=== PATIENT | male | born 1975 | race Caucasian/White ===

== ENCOUNTER 2019-08-16 09:05 | Day surgery (SDC) | payer OTHER, BC ==
[2019-08-16] MEDS ORDERED: Ketorolac 30 MG/ML SDV IVPUSH ONE (09:11)
[2019-08-16] MEDS ORDERED: fentaNYL 50 MCG/ML SDV IVPUSH ONE (09:11)
--- NOTE | 2019-08-16 09:31 | EDM.PDOC ---
ED [facility] GENERAL MEDICAL PROBLEM - General Chief Complaint: Lower Extremity Injury/Pain Stated Complaint: EMS Time Seen by Provider: 08/16/19 09:10 Source of Information: Reports: Patient History Limitations: Reports: No Limitations - History of Present Illness INITIAL COMMENTS - FREE TEXT/NARRATIVE: Patient is a 43-year-old male with no significant past medical history presenting with a chief complaint of right lower extremity injury. Patient states injury happened just prior to arrival. Patient states he was walking and slipped on ice twisting his right leg. Patient reports immediate pain which is severe in nature to the right lower extremity. Patient states he cannot move his leg due to pain. Patient denies any numbness tingling. Denies any other injuries to the body. Denies striking his head or having loss of consciousness. Patient received 50 of fentanyl and 2 of Versed prior to arrival without any relief. Pmhx: None Pshx: None Family Hx: noncontributory Smoking history? no Etoh use? none Drug use? none In addition to that documented in the HPI above, the additional ROS was obtained : Constitutional: Denies fevers or chills Eyes: Denies vision changes ENMT: Denies sore throat CV: Denies chest pain Resp: Denies SOB GI: Denies vomiting or diarrhea : Denies painful urination MSK: Per HPI Skin: Denies new rashes Neuro: Denies new numbness or tingling or weakness Endocrine: Denies unexpected weight loss Heme: Denies bleeding disorders I have reviewed the triage vital signs Const: Well nourished, well developed, appears stated age Eyes: PERRL, no conjunctival injection HENT: NCAT, Neck supple without meningismus CV: RRR, Warm, well-perfused extremities RESP: CTAB, Unlabored respiratory effort GI: soft, non-tender, non-distended, no masses MSK: Palpable deformity in the mid right tibia as well as in the right ankle. Patient has good sensation to light touch as well as good motor function. Dorsalis pedis pulse palpated. Capillary refill 3 seconds. Skin: Warm, dry. No rashes Neuro: Alert, manager branch II-XII grossly intact. Sensation and motor function of extremities grossly intact. Psych: Appropriate mood and affect Assessment and plan: Patient is a 43-year-old male presenting with right lower extremity trauma. Patient's right lower extremity x-ray demonstrates a tib-fib fracture. Patient has no vascular compromise. Case was discussed with Dr. Coker of orthopedics who agreed to admit the patient under his service for operative management. Patient has no other major trauma and will be admitted to same-day surgery under the orthopedic service. CT scan will be done of the right lower extremity to determine the fracture line. right ankle Pain Score (Numeric/FACES): 9 - Related Data Allergies Allergy/AdvReac Type Severity Reaction Status Date / Time No Known Allergies Allergy Verified 08/16/19 09:10 Home Meds: Home Meds Escitalopram Oxalate [Lexapro] 20 mg PO DAILY 08/16/19 [History] Past Medical History HEENT History: Reports: None Cardiovascular History: Reports: None Respiratory History: Reports: None Gastrointestinal History: Reports: None Genitourinary History: Reports: None Musculoskeletal History: Reports: None Neurological History: Reports: None Psychiatric History: Reports: Anxiety, Depression Endocrine/Metabolic History: Reports: None Hematologic History: Reports: None Immunologic History: Reports: None Oncologic (Cancer) History: Reports: None Dermatologic History: Reports: None - Infectious Disease History Infectious Disease History: Reports: Chicken Pox - Past Surgical History Head Surgeries/Procedures: Reports: None HEENT Surgical History: Reports: None Cardiovascular Surgical History: Reports: None Respiratory Surgical History: Reports: None GI Surgical History: Reports: None Male Surgical History: Reports: None Endocrine Surgical History: Reports: None Neurological Surgical History: Reports: None Musculoskeletal Surgical History: Reports: None Oncologic Surgical History: Reports: None Dermatological Surgical History: Reports: None Social & Family History - Family History Family Medical History: Noncontributory - Tobacco Use Smoking Status *Q: Current Every Day Smoker Years of Tobacco use: 22 Packs/Tins Daily: 1 - Caffeine Use Caffeine Use: Reports: Coffee - Recreational Drug Use Recreational Drug Use: No Review of Systems - Review of Systems Review Of Systems: See Below ED EXAM, GENERAL - Physical Exam Exam: See Below Course - Vital Signs Last Recorded V/S: Last Vital Signs Temp 36.2 C 08/16/19 09:08 Pulse 88 08/16/19 10:12 Resp 16 08/16/19 10:12 BP 111/75 08/16/19 10:12 Pulse Ox 95 08/16/19 10:12 - Orders/Labs/Meds Orders: Active Orders 24 hr Category Date Time Status Admission Status [Patient Status] [ADT] Stat ADT 08/16/19 09:59 Active Admission Status [Patient Status] [ADT] Stat ADT 08/16/19 10:40 Active Antiembolic Devices [RC] PER UNIT ROUTINE Care 08/16/19 10:39 Active Nothing Per Oral Diet [DIET] Diet 08/16/19 Lunch Active Lower Leg wo Cont Rt [CT] Stat Exams 08/16/19 09:58 Taken TYPE AND SCREEN [BBK] Stat Lab 08/16/19 10:42 Received Lactated Ringers [Ringers, Lactated] 1,000 ml Med 08/16/19 11:00 Active IV ASDIRECTED ceFAZolin [Ancef] 2 gm Med 08/16/19 15:00 Active Premix Bag 1 bag IV ONCALL Obtain Home Medication List [OM.PC] Routine Oth 08/16/19 10:37 Ordered Sequential Compression Device [OM.PC] Routine Oth 08/16/19 10:37 Ordered Code Status [Resuscitation Status] Routine Resus Stat 08/16/19 10:36 Ordered Medication Orders Cefazolin Sodium/Dextrose 2 gm (/ Premix) 50 mls @ 100 mls/hr IV ONCALL KENDRA Lactated Ringer's (Ringers, Lactated) 1,000 mls @ 100 mls/hr IV ASDIRECTED KENDRA Labs: Laboratory Tests 08/16/19 08/16/19 08/16/19 Range/Units 10:04 10:04 10:04 WBC 20.34 H (4.0-11.0) K/uL RBC 4.47 L (4.50-5.90) M/uL Hgb 15.0 (13.0-17.0) g/dL Hct 43.0 (38.0-50.0) % MCV 96.2 (80.0-98.0) fL MCH 33.6 H (27.0-32.0) pg MCHC 34.9 (31.0-37.0) g/dL RDW Std Deviation 49.7 (28.0-62.0) fl RDW Coeff of Michelle 14 (11.0-15.0) % Plt Count 248 (150-400) K/uL MPV 9.30 (7.40-12.00) fL Neut % (Auto) 88.1 H (48.0-80.0) % Lymph % (Auto) 6.2 L (16.0-40.0) % [place] % (Auto) 5.5 (0.0-15.0) % Eos % (Auto) 0.1 (0.0-7.0) % Baso % (Auto) 0.1 (0.0-1.5) % Neut # (Auto) 17.9 H (1.4-5.7) K/uL Lymph # (Auto) 1.3 (0.6-2.4) K/uL [place] # (Auto) 1.1 H (0.0-0.8) K/uL Eos # (Auto) 0.0 (0.0-0.7) K/uL Baso # (Auto) 0.0 (0.0-0.1) K/uL Nucleated RBC % 0.1 /100WBC Nucleated RBCs # 0 K/uL INR 1.01 Sodium 137 (136-148) mmol/L Potassium 4.1 (3.5-5.1) mmol/L Chloride 101 (98-107) mmol/L Carbon Dioxide 24.3 (21.0-32.0) mmol/L BUN 16 (7.0-18.0) mg/dL Creatinine 0.9 (0.8-1.3) mg/dL Est Cr Clr Drug Dosing 93.53 mL/min Estimated GFR (MDRD) > 60.0 ml/min Glucose 104 (74-106) mg/dL Calcium 8.9 (8.5-10.1) mg/dL Meds: Medications Generic Name Dose Route Start Last Admin Trade Name Freq PRN Reason Stop Dose Admin Cefazolin Sodium/Dextrose 2 gm 50 mls @ 100 mls/hr 08/16/19 15:00 / Premix IV ONCALL KENDRA Lactated Ringer's 1,000 mls @ 100 mls/hr 08/16/19 11:00 Ringers, Lactated IV ASDIRECTED KENDRA Discontinued Medications Generic Name Dose Route Start Last Admin Trade Name Freq PRN Reason Stop Dose Admin Fentanyl 100 mcg 08/16/19 09:11 08/16/19 09:22 Fentanyl IVPUSH 08/16/19 09:12 100 mcg ONETIME ONE Administration Ketorolac Tromethamine 30 mg 08/16/19 09:11 08/16/19 09:21 Toradol IVPUSH 08/16/19 09:12 30 mg ONETIME ONE Administration Morphine Sulfate 6 mg 08/16/19 10:52 Morphine IVPUSH 08/16/19 10:53 ONETIME ONE Ondansetron HCl 4 mg 08/16/19 10:52 Zofran IVPUSH 08/16/19 10:53 ONETIME ONE Departure - Departure Time of Disposition: 11:00 Disposition: Refer to Observation Clinical Impression: Fracture of tibia AND fibula - Discharge Information Referrals: Nuno Menon MD [Primary Care Provider] - Forms: ED Department Discharge Sepsis Event Note - Evaluation Sepsis Screening Result: No Definite Risk - Focused Exam Vital Signs: Vital Signs Temp Pulse Resp BP Pulse Ox 08/16/19 10:12 88 16 111/75 95 08/16/19 09:08 36.2 C 81 18 130/98 H 96 Date Exam was Performed: 08/16/19 Time Exam was Performed: 10:59 - My Orders Last 24 Hours: My Active Orders 08/16/19 09:58 Lower Leg wo Cont Rt [CT] Stat 08/16/19 09:59 Admission Status [Patient Status] [ADT] Stat 08/16/19 10:42 TYPE AND SCREEN [BBK] Stat - Assessment/Plan Last 24 Hours: My Active Orders 08/16/19 09:58 Lower Leg wo Cont Rt [CT] Stat 08/16/19 09:59 Admission Status [Patient Status] [ADT] Stat 08/16/19 10:42 TYPE AND SCREEN [BBK] Stat
--- NOTE | 2019-08-16 10:10 | CR ---
Right ankle: 3 views of the right ankle were obtained. Comparison: No previous ankle study. Comminuted distal tibial diaphyseal fracture is seen. Fracture is also noted within the distal fibular shaft. Tibial fracture shows displacement in an anterior to posterior direction by about 1.2 cm. Lesser displacement of the distal fibular fracture is noted. Ankle mortise is fairly symmetric. No additional abnormality is appreciated. Impression: 1. Distal tibia and fibular fractures as noted above. Diagnostic code #5 This report was dictated in [place] Standard Time
--- NOTE | 2019-08-16 10:10 | CR ---
Right tibia and fibula: 2 views of the right tibia and fibula were obtained. Comparison: Prior ankle study performed on the same day. Displaced and comminuted distal tibial diaphyseal fracture is noted. Distal fibular fracture is seen. No proximal abnormality is seen within the tibia or fibula. Impression: 1. Distal tibial diaphyseal fracture and fibular fracture is again noted. 2. No proximal abnormality is seen. Diagnostic code #3 This report was dictated in [place] Standard Time
[2019-08-16 10:48] LABS: BLOOD UREA NITROGEN,BUN 16 mg/dL (7.0-18.0); CARBON DIOXIDE,CO2 24.3 mmol/L (21.0-32.0); CHLORIDE,CL 101 mmol/L (98-107); GLUCOSE RANDOM 104 mg/dL (74-106); POTASSIUM,K 4.1 mmol/L (3.5-5.1); SODIUM,NA 137 mmol/L (136-148)
[2019-08-16] MEDS ORDERED: Morphine 10 MG/ML Syringe IVPUSH ONE (10:52)
[2019-08-16] MEDS ORDERED: Ondansetron 4 MG/2 ML SDV IVPUSH ONE (10:52)
[2019-08-16] MEDS: Lactated Ringers 1,000 ML IV SCH ×2 (11:09→21:22)
--- NOTE | 2019-08-16 11:13 | CT ---
CT right tibia and fibula: Multiple axial sections were obtained to the right tibia and fibula. Reconstructed coronal and sagittal images were obtained. Intravenous contrast not utilized. Comminuted distal one third tibial diaphyseal fracture is seen. Fracture extends into the articular margin at the tibiotalar joint. There is rotation of the fracture with the foot being in a lateral projection and the knee being in an AP projection. Greatest displacement is 1.6 cm. No significant displacement is seen of the articular fractures. Mild angulation is also noted. Distal fibular fracture is noted. Greatest displacement is about 6.6 mm. Small bony fragments are seen laterally which are felt to be off the fibula which are inferiorly displaced. Talus shows no fracture. Calcaneus shows no fracture. No proximal bony abnormality is seen. Diffuse soft tissue swelling is noted. Impression: 1. Comminuted distal one third diaphyseal tibial fracture. Articular extension is seen into the ankle. Fracture rotation and displacement as well as mild angulation is seen. 2. Distal fibular fracture with multiple small displaced bony fragment seen inferior to the fibula. 3. No proximal abnormality is seen. Talus and calcaneus are intact. Diagnostic code #3 This report was dictated in [place] Standard Time
[2019-08-16] MEDS: HYDROmorphone 2 MG/ML Syringe IVPUSH PRN ×2 (12:53→14:54)
--- NOTE | 2019-08-16 14:08 | PCM.PREANE ---
Preanesthetic Assessment - Anesthesia/Transfusion/Family Hx Anesthesia History: Prior Anesthesia Without Reaction Family History of Anesthesia Reaction: No Transfusion History: No Prior Transfusion(s) Intubation History: Unknown - Review of Systems General: No Symptoms Pulmonary: No Symptoms Cardiovascular: No Symptoms Gastrointestinal: No Symptoms Neurological: No Symptoms Other: Reports: None - Physical Assessment NPO Status Date: 08/16/19 NPO Status Time: 08:00 Vital Signs: Last Vital Signs Temp 37.3 C 08/16/19 12:25 Pulse 86 08/16/19 12:25 Resp 20 08/16/19 12:25 BP 136/72 08/16/19 12:25 Pulse Ox 97 08/16/19 12:25 Height: 5 ft 6 in Weight: 65.771 kg ASA Class: 2E Mental Status: Alert & Oriented x3 Airway Class: Mallampati = 2 Dentition: Reports: Normal Dentition (bonded teeth x3 upper front) Thyro-Mental Finger Breadths: 3 Mouth Opening Finger Breadths: 2 ROM/Head Extension: Full Lungs: Clear to Auscultation, Normal Respiratory Effort Cardiovascular: Regular Rate, Regular Rhythm - Lab Values: Laboratory Last Values WBC 20.34 K/uL (4.0-11.0) H 08/16/19 10:04 RBC 4.47 M/uL (4.50-5.90) L 08/16/19 10:04 Hgb 15.0 g/dL (13.0-17.0) 08/16/19 10:04 Hct 43.0 % (38.0-50.0) 08/16/19 10:04 MCV 96.2 fL (80.0-98.0) 08/16/19 10:04 MCH 33.6 pg (27.0-32.0) H 08/16/19 10:04 MCHC 34.9 g/dL (31.0-37.0) 08/16/19 10:04 RDW Std Deviation 49.7 fl (28.0-62.0) 08/16/19 10:04 RDW Coeff of Michelle 14 % (11.0-15.0) 08/16/19 10:04 Plt Count 248 K/uL (150-400) 08/16/19 10:04 MPV 9.30 fL (7.40-12.00) 08/16/19 10:04 Neut % (Auto) 88.1 % (48.0-80.0) H 08/16/19 10:04 Lymph % (Auto) 6.2 % (16.0-40.0) L 08/16/19 10:04 [place] % (Auto) 5.5 % (0.0-15.0) 08/16/19 10:04 Eos % (Auto) 0.1 % (0.0-7.0) 08/16/19 10:04 Baso % (Auto) 0.1 % (0.0-1.5) 08/16/19 10:04 Neut # (Auto) 17.9 K/uL (1.4-5.7) H 08/16/19 10:04 Lymph # (Auto) 1.3 K/uL (0.6-2.4) 08/16/19 10:04 [place] # (Auto) 1.1 K/uL (0.0-0.8) H 08/16/19 10:04 Eos # (Auto) 0.0 K/uL (0.0-0.7) 08/16/19 10:04 Baso # (Auto) 0.0 K/uL (0.0-0.1) 08/16/19 10:04 Nucleated RBC % 0.1 /100WBC 08/16/19 10:04 Nucleated RBCs # 0 K/uL 08/16/19 10:04 INR 1.01 08/16/19 10:04 Sodium 137 mmol/L (136-148) 08/16/19 10:04 Potassium 4.1 mmol/L (3.5-5.1) 08/16/19 10:04 Chloride 101 mmol/L (98-107) 08/16/19 10:04 Carbon Dioxide 24.3 mmol/L (21.0-32.0) 08/16/19 10:04 BUN 16 mg/dL (7.0-18.0) 08/16/19 10:04 Creatinine 0.9 mg/dL (0.8-1.3) 08/16/19 10:04 Est Cr Clr Drug Dosing 93.53 mL/min 08/16/19 10:04 Estimated GFR (MDRD) > 60.0 ml/min 08/16/19 10:04 Glucose 104 mg/dL (74-106) 08/16/19 10:04 Calcium 8.9 mg/dL (8.5-10.1) 08/16/19 10:04 Blood Type A POSITIVE 08/16/19 10:42 Antibody Screen NEGATIVE 08/16/19 10:42 - Allergies Allergies/Adverse Reactions: Allergies Allergy/AdvReac Type Severity Reaction Status Date / Time No Known Allergies Allergy Verified 08/16/19 12:49 - Blood Blood Available: No - Anesthesia Plan Pre-Op Medication Ordered: None - Acknowledgements Anesthesia Type Planned: General Anesthesia Pt an Appropriate Candidate for the Planned Anesthesia: Yes Alternatives and Risks of Anesthesia Discussed w Pt/Guardian: Yes Pt/Guardian Understands and Agrees with Anesthesia Plan: Yes PreAnesthesia Questionnaire HEENT History: Reports: Other (See Below) Other HEENT History: wears glasses Cardiovascular History: Reports: None Respiratory History: Reports: Other (See Below) Other Respiratory History: 1-1.5 PPD for 22 years Gastrointestinal History: Reports: None Genitourinary History: Reports: None Musculoskeletal History: Reports: Fracture (rt. tib/fib. fx at present (fell on ice)) Other Musculoskeletal History: hx of previous fx left arm and pelvis Neurological History: Reports: None Psychiatric History: Reports: Anxiety Endocrine/Metabolic History: Reports: None Hematologic History: Reports: None Immunologic History: Reports: None Oncologic (Cancer) History: Reports: None Dermatologic History: Reports: None - Infectious Disease History Infectious Disease History: Reports: Chicken Pox - Past Surgical History Head Surgeries/Procedures: Reports: None HEENT Surgical History: Reports: Naso-Sinus Surgery Musculoskeletal Surgical History: Reports: None - SUBSTANCE USE Smoking Status *Q: Current Every Day Smoker (1-1 1/2 ppd) Tobacco Use Within Last Twelve Months: Cigarettes Recreational Drug Use History: No - HOME MEDS Home Medications: Home Meds Escitalopram Oxalate [Lexapro] 20 mg PO BEDTIME 08/16/19 [History] - CURRENT (IN HOUSE) MEDS Current Meds: Current Medications Hydromorphone HCl (Dilaudid) 1 - 2 mg IVPUSH ONETIME PRN PRN Reason: Pain Last Admin: 08/16/19 12:53 Dose: 1 mg Cefazolin Sodium/Dextrose 2 gm (/ Premix) 50 mls @ 100 mls/hr IV ONCALL KENDRA Lactated Ringer's (Ringers, Lactated) 1,000 mls @ 100 mls/hr IV ASDIRECTED KENDRA Last Admin: 08/16/19 11:09 Dose: 100 mls/hr Discontinued Medications Fentanyl (Fentanyl) 100 mcg IVPUSH ONETIME ONE Stop: 08/16/19 09:12 Last Admin: 08/16/19 09:22 Dose: 100 mcg Ketorolac Tromethamine (Toradol) 30 mg IVPUSH ONETIME ONE Stop: 08/16/19 09:12 Last Admin: 08/16/19 09:21 Dose: 30 mg Morphine Sulfate (Morphine) 6 mg IVPUSH ONETIME ONE Stop: 08/16/19 10:53 Last Admin: 08/16/19 11:02 Dose: 6 mg Ondansetron HCl (Zofran) 4 mg IVPUSH ONETIME ONE Stop: 08/16/19 10:53 Last Admin: 08/16/19 11:02 Dose: 4 mg
[2019-08-16] MEDS ORDERED: ceFAZolin 2 GM in Premix Bag 1 BAG IV SCH (15:00)
[2019-08-16] MEDS ORDERED: Bupivacaine 0.5% 30 ML SDV ONE (15:18)
[2019-08-16] MEDS ORDERED: Lidocaine 2% 5 ML SDV ONE (15:18)
[2019-08-16] MEDS ORDERED: Propofol 200 MG/20 ML SDV ONE (15:18)
[2019-08-16] MEDS ORDERED: Midazolam 1 MG/ML 2 ML SDV ONE (15:18)
[2019-08-16] MEDS ORDERED: Rocuronium 100 MG/10 ML Syringe ONE (15:18)
[2019-08-16] MEDS ORDERED: fentaNYL 250 MCG/5 ML SDV ONE (15:19)
[2019-08-16] MEDS ORDERED: Sugammadex Sodium 200 MG/2 ML VIAL ONE (16:27)
[2019-08-16] MEDS ORDERED: Morphine 4 MG/ML Syringe IVPUSH ONE (16:57)
[2019-08-16] MEDS ORDERED: Morphine PF 10 MG/10 ML SDV ONE (16:58)
[2019-08-16] MEDS ORDERED: Dexamethasone 4 MG/ML 5 ML MDV ONE (16:59)
[2019-08-16] MEDS ORDERED: fentaNYL 100 MCG/2 ML SDV ONE (17:31)
[2019-08-16] MEDS ORDERED: Ondansetron 4 MG/2 ML SDV ONE (17:44)
[2019-08-16] MEDS ORDERED: traMADol 50 MG Tab PO PRN (18:19)
[2019-08-16] MEDS ORDERED: Ketorolac 30 MG/ML SDV IVPUSH PRN (18:19)
[2019-08-16] MEDS ORDERED: hydrOXYzine Pamoate 25 MG Cap PO PRN (18:24)
--- NOTE | 2019-08-16 18:26 | PCM.OPNOTE ---
- General Post-Op/Procedure Note Date of Surgery/Procedure: 08/16/19 Operative Procedure(s): orif right tibial shaft, right distal fibula Pre Op Diagnosis: right tibial shaft fracture, closed, butterfly. right fibular distal fractre, closed Post-Op Diagnosis: Same Anesthesia Technique: General ET Tube Primary Surgeon: Kam Coker Anesthesia Provider: Mendez Mabry Turret Press Operator: Evelyn Rush EBL in mLs: 150 Complications: None Condition: Good Free Text/Narrative:: Intake & Output 08/16/19 08/16/19 08/16/19 06:59 14:59 22:59 Output Total 300 Balance -300
--- NOTE | 2019-08-16 19:10 | PCM.POSTAN ---
POST ANESTHESIA ASSESSMENT - MENTAL STATUS Mental Status: Alert - VITAL SIGNS Vital Signs: Last Vital Signs Temp 36.5 C 08/16/19 18:40 Pulse 99 08/16/19 18:58 Resp 10 L 08/16/19 18:58 BP 131/82 08/16/19 18:58 Pulse Ox 96 08/16/19 18:58 - RESPIRATORY Respiratory Status: Respiratory Rate WNL - CARDIOVASCULAR CV Status: Pulse Rate WNL - GASTROINTESTINAL GI Status: No Symptoms - PAIN Pain Score: 2 (Sore but well controlled.) - POST OP HYDRATION Hydration Status: Adequate & Stable Free Text/Narrative:: Taking fluids. - OBSERVATIONS Free Text/Narrative:: Doing well. Awaiting room for overnight.
[2019-08-16] MEDS: Morphine 4 MG/ML Syringe IVPUSH PRN ×2 (20:31→22:53)
--- NOTE | 2019-08-16 20:42 | CR ---
Right tibia and fibula: 9 fluoroscopic spot views were obtained of the right tibia and fibula utilizing C-arm device. Study shows reduction and fixation of previous fractures within the tibia and fibula. Plate and screws are noted affixing the fractures. Alignment of the fractures appears to be close to anatomic is seen on this exam. Fluoroscopy time is given as 78.3 seconds. Impression: 1. Procedural study as noted above. Diagnostic code #2 Study was dictated in [place] Standard Time
[2019-08-16] MEDS: Docusate Sodium 100 MG Cap PO SCH (20:45)
[2019-08-16] MEDS: Acetaminophen/oxyCODONE 325-5 MG Tab PO PRN (21:21)
[2019-08-16] MEDS ORDERED: Lactated Ringers 1,000 ML IV SCH (23:00)
[2019-08-16] MEDS: ceFAZolin 2 GM in Premix Bag 1 BAG IV SCH (23:02)
[2019-08-17] MEDS: Morphine 4 MG/ML Syringe IVPUSH PRN ×4 (00:59→11:40)
[2019-08-17] MEDS: Acetaminophen/oxyCODONE 325-5 MG Tab PO PRN ×2 (03:44→10:17)
--- NOTE | 2019-08-17 07:27 | PCM48HPAN ---
Post Anesthesia Note - EVALUATION WITHIN 48HRS OF ANESTHETIC Vital Signs in Normal Range: Yes Patient Participated in Evaluation: Yes Respiratory Function Stable: Yes Airway Patent: Yes Cardiovascular Function Stable: Yes Hydration Status Stable: Yes Pain Control Satisfactory: Yes (Some soreness.) Nausea and Vomiting Control Satisfactory: Yes Mental Status Recovered: Yes Vital Signs: Last Vital Signs Temp 36.6 C 08/17/19 04:00 Pulse 90 08/17/19 04:00 Resp 16 08/17/19 04:00 BP 109/72 08/17/19 04:00 Pulse Ox 94 L 08/17/19 04:00 - COMMENTS/OBSERVATIONS Free Text/Narrative:: Doing well. No problems noted.
[2019-08-17] MEDS: Docusate Sodium 100 MG Cap PO SCH (08:27)
[2019-08-17] MEDS: ceFAZolin 2 GM in Premix Bag 1 BAG IV SCH (08:35)
[2019-08-17] MEDS ORDERED: Aspirin 325 MG Tab PO SCH (09:00)
[2019-08-17] MEDS ORDERED: Famotidine 20 MG Tab PO SCH (09:00)
--- NOTE | 2019-08-17 12:59 | PCM.SURGPN ---
- General Info Date of Service: 08/17/19 (0800) Date of Surgery/Procedure: 08/16/19 POD#: 1 Post-Op Diagnosis: s/p ORIF Right tibial shaft & ORIF right distal fibula Admission Diagnosis/Problem: Closed fracture of shaft of tibia (Right tibial shaft fracture, closed, butterfly AND Right distal fibular fracture, closed) Functional Status: Reports: Pain Controlled (pain manageable this morning), Tolerating Diet (eating breakfast in bed), Ambulating (Has not been up ambulating with staff), Urinating - Review of Systems General: Reports: No Symptoms. Denies: Fever Pulmonary: Reports: No Symptoms. Denies: Shortness of Breath Cardiovascular: Denies: Chest Pain Gastrointestinal: Denies: Nausea, Vomiting Musculoskeletal: Reports: Other (right ankle pain) Neurological: Reports: No Symptoms - Patient Data Vitals - Most Recent: Last Vital Signs Temp 36.6 C 08/17/19 04:00 Pulse 90 08/17/19 04:00 Resp 16 08/17/19 04:00 BP 109/72 08/17/19 04:00 Pulse Ox 94 L 08/17/19 04:00 Weight - Most Recent: 65.771 kg I&O - Last 24 Hours: Intake & Output 08/16/19 08/17/19 08/17/19 22:59 06:59 14:59 Intake Total 1850 1775 Output Total 300 250 Balance 1550 1525 Lab Results Last 24 Hrs: Laboratory Results - last 24 hr 08/17/19 Range/Units 05:53 Hgb 11.7 L (13.0-17.0) g/dL Hct 35.9 L (38.0-50.0) % Med Orders - Current: Current Medications Aspirin (Aspirin) 325 mg PO DAILY [facility] Last Admin: 08/17/19 08:27 Dose: 325 mg Docusate Sodium (Colace) 100 mg PO BID [facility] Last Admin: 08/17/19 08:27 Dose: 100 mg Famotidine (Pepcid) 40 mg PO DAILY [facility] Last Admin: 08/17/19 08:27 Dose: 40 mg Hydromorphone HCl (Dilaudid) 1 - 2 mg IVPUSH ONETIME PRN PRN Reason: Pain Last Admin: 08/16/19 14:54 Dose: 1 mg Hydroxyzine Pamoate (Vistaril) 25 mg PO Q6H PRN PRN Reason: Pain Last Admin: 08/17/19 00:14 Dose: 25 mg Cefazolin Sodium/Dextrose 2 gm (/ Premix) 50 mls @ 100 mls/hr IV ONCALL [facility] Lactated Ringer's (Ringers, Lactated) 1,000 mls @ 125 mls/hr IV ASDIRECTED [facility] Last Admin: 08/17/19 04:44 Dose: 125 mls/hr Morphine Sulfate (Morphine) 4 mg IVPUSH Q2H PRN PRN Reason: Pain Last Admin: 08/17/19 11:40 Dose: 4 mg Oxycodone/Acetaminophen (Percocet 325-5 Mg) 1 - 2 tab PO Q4H PRN PRN Reason: Pain Last Admin: 08/17/19 10:17 Dose: 1 tab Tramadol HCl (Ultram) 50 - 100 mg PO Q4H PRN PRN Reason: Pain Discontinued Medications Bupivacaine HCl (Marcaine 0.5%) Confirm Administered Dose 30 ml .ROUTE .STK-MED ONE Stop: 08/16/19 15:19 Dexamethasone (Dexamethasone) Confirm Administered Dose 20 mg .ROUTE .STK-MED ONE Stop: 08/16/19 17:00 Fentanyl (Fentanyl) 100 mcg IVPUSH ONETIME ONE Stop: 08/16/19 09:12 Last Admin: 08/16/19 09:22 Dose: 100 mcg Fentanyl (Sublimaze) Confirm Administered Dose 250 mcg .ROUTE .STK-MED ONE Stop: 08/16/19 15:20 Fentanyl (Sublimaze) Confirm Administered Dose 100 mcg .ROUTE .STK-MED ONE Stop: 08/16/19 17:32 Lactated Ringer's (Ringers, Lactated) 1,000 mls @ 100 mls/hr IV ASDIRECTED [facility] Last Admin: 08/16/19 21:22 Dose: 100 mls/hr Acetaminophen (Ofirmev) Confirm Administered Dose 100 mls @ as directed .ROUTE .STK-MED ONE Stop: 08/16/19 16:27 Cefazolin Sodium/Dextrose 2 gm (/ Premix) 50 mls @ 100 mls/hr IV Q8H [facility] Stop: 08/17/19 08:29 Last Admin: 08/17/19 08:35 Dose: 100 mls/hr Ketorolac Tromethamine (Toradol) 30 mg IVPUSH ONETIME ONE Stop: 08/16/19 09:12 Last Admin: 08/16/19 09:21 Dose: 30 mg Ketorolac Tromethamine (Toradol) 30 mg IVPUSH Q6H PRN PRN Reason: Pain Stop: 08/17/19 05:00 Lidocaine (Xylocaine-Mpf 2%) Confirm Administered Dose 5 ml .ROUTE .STK-MED ONE Stop: 08/16/19 15:19 Lidocaine HCl (Xylocaine-Mpf 1%) Confirm Administered Dose 5 ml .ROUTE .STK-MED ONE Stop: 08/16/19 18:17 Midazolam HCl (Versed 1 Mg/Ml) Confirm Administered Dose 2 mg .ROUTE .STK-MED ONE Stop: 08/16/19 15:19 Morphine Sulfate (Morphine) 6 mg IVPUSH ONETIME ONE Stop: 08/16/19 10:53 Last Admin: 08/16/19 11:02 Dose: 6 mg Morphine Sulfate (Morphine) 4 mg IVPUSH ONETIME ONE Stop: 08/16/19 16:58 Last Admin: 08/16/19 19:18 Dose: 4 mg Morphine Sulfate (Duramorph Pf) Confirm Administered Dose 10 mg .ROUTE .STK-MED ONE Stop: 08/16/19 16:59 Ondansetron HCl (Zofran) 4 mg IVPUSH ONETIME ONE Stop: 08/16/19 10:53 Last Admin: 08/16/19 11:02 Dose: 4 mg Ondansetron HCl (Zofran) Confirm Administered Dose 4 mg .ROUTE .STK-MED ONE Stop: 08/16/19 17:45 Propofol (Diprivan 20 Ml) Confirm Administered Dose 200 mg .ROUTE .STK-MED ONE Stop: 08/16/19 15:19 Rocuronium [place] (Zemuron) Confirm Administered Dose 100 mg .ROUTE .STK-MED ONE Stop: 08/16/19 15:19 Sugammadex Sodium (Bridion) Confirm Administered Dose 200 mg .ROUTE .STK-MED ONE Stop: 08/16/19 16:28 - Exam Wound/Incisions: Dressing Dry and Intact (Darvin Bandage intact inside walking boot.) Quality Assessment: DVT Prophylaxis (SCD to LLE) General: Alert, Oriented, Cooperative, No Acute Distress HEENT: Pupils Equal Lungs: Normal Respiratory Effort Cardiovascular: Regular Rate Extremities: Other (PP1+ Sensation grossly intact to toes. Actively wiggles toes. ) Neurological: Normal Speech, Normal Tone Psy/Mental Status: Alert, Normal Affect, Normal Mood Sepsis Event Note - Evaluation Sepsis Screening Result: No Definite Risk - Focused Exam Vital Signs: Vital Signs Temp Pulse Resp BP Pulse Ox 08/17/19 04:00 36.6 C 90 16 109/72 94 L Date Exam was Performed: 08/17/19 Time Exam was Performed: 12:54 - Problem List Review Problem List Initiated/Reviewed/Updated: Yes - My Orders Last 24 Hours: Active Orders 24 hr Category Date Time Status Cooling Warming Measures [RC] ASDIRECTED Care 08/16/19 18:20 Active Neurovascular Check [RC] BID Care 08/16/19 18:19 Active Ready for Discharge [RC] PER UNIT ROUTINE Care 08/17/19 12:53 Ordered OT Evaluation and Treatment [CONS] Routine Cons 08/16/19 18:20 Active PT Evaluation and Treatment [CONS] Routine Cons 08/16/19 18:20 Active Regular Diet [DIET] Diet 08/17/19 Breakfast Active HEMOGLOBIN/HEMATOCRIT,HH [HEME] DAILY Lab 08/18/19 06:00 Ordered Acetaminophen/oxyCODONE [Percocet 325-5 MG] Med 08/16/19 18:19 Active 1 - 2 tab PO Q4H PRN Aspirin Med 08/17/19 09:00 Active 325 mg PO DAILY Docusate Sodium [Colace] Med 08/16/19 21:00 Active 100 mg PO BID Famotidine [Pepcid] Med 08/17/19 09:00 Active 40 mg PO DAILY HYDROmorphone [Dilaudid] Med 08/16/19 12:44 Active 1 - 2 mg IVPUSH ONETIME PRN Lactated Ringers [Ringers, Lactated] 1,000 ml Med 08/16/19 23:00 Active IV ASDIRECTED Morphine Med 08/16/19 18:19 Active 4 mg IVPUSH Q2H PRN ceFAZolin [Ancef] 2 gm Med 08/16/19 15:00 Active Premix Bag 1 bag IV ONCALL hydrOXYzine pamoate [Vistaril] Med 08/16/19 18:24 Active 25 mg PO Q6H PRN traMADol [Ultram] Med 08/16/19 18:19 Active 50 - 100 mg PO Q4H PRN Ice Therapy [OM.PC] Routine Oth 08/16/19 18:20 Ordered Medication Orders Aspirin (Aspirin) 325 mg PO DAILY [facility] Last Admin: 08/17/19 08:27 Dose: 325 mg Docusate Sodium (Colace) 100 mg PO BID [facility] Last Admin: 08/17/19 08:27 Dose: 100 mg Admin: 08/16/19 20:45 Dose: 100 mg Famotidine (Pepcid) 40 mg PO DAILY [facility] Last Admin: 08/17/19 08:27 Dose: 40 mg Hydromorphone HCl (Dilaudid) 1 - 2 mg IVPUSH ONETIME PRN PRN Reason: Pain Last Admin: 08/16/19 14:54 Dose: 1 mg Admin: 08/16/19 12:53 Dose: 1 mg Hydroxyzine Pamoate (Vistaril) 25 mg PO Q6H PRN PRN Reason: Pain Last Admin: 08/17/19 00:14 Dose: 25 mg Cefazolin Sodium/Dextrose 2 gm (/ Premix) 50 mls @ 100 mls/hr IV ONCALL [facility] Lactated Ringer's (Ringers, Lactated) 1,000 mls @ 125 mls/hr IV ASDIRECTED [facility] Last Admin: 08/17/19 04:44 Dose: 125 mls/hr Morphine Sulfate (Morphine) 4 mg IVPUSH Q2H PRN PRN Reason: Pain Last Admin: 08/17/19 11:40 Dose: 4 mg Admin: 08/17/19 08:22 Dose: 4 mg Admin: 08/17/19 05:58 Dose: 4 mg Admin: 08/17/19 00:59 Dose: 4 mg Admin: 08/16/19 22:53 Dose: 4 mg Admin: 08/16/19 20:31 Dose: 4 mg Oxycodone/Acetaminophen (Percocet 325-5 Mg) 1 - 2 tab PO Q4H PRN PRN Reason: Pain Last Admin: 08/17/19 10:17 Dose: 1 tab Admin: 08/17/19 03:44 Dose: 1 tab Admin: 08/16/19 21:21 Dose: 1 tab Tramadol HCl (Ultram) 50 - 100 mg PO Q4H PRN PRN Reason: Pain - Assessment Assessment (Free Text/Narrative):: 1) s/p ORIF Right tibial shaft and Right distal fibula (POD#1) 2) post-op pain - Plan Plan (Free Text/Narrative):: Eating breakfast without N/V. VSS/afebrile. Voiding. Right LE elevated on pillow, with polarcare ice pad on bottom of foot. NV exam RLE intact : pp1+ Sensation grossly intact and actively wiggles toes. Walking boot on RLE. DARVIN Bandage CDI. Receiving last dose of IV antibiotic. DVT prophylaxis : SCD to LLE, and will be discharged on ASA 325mg daily. Pain managed overnight with combination of IV Morphine, Percocet 5mg and a dose of Vistaril. Pain manageable this morning. Discussed that he will receive PT this morning, with education on use of crutches. Discussed NWB to RLE. Elevate RLE to minimize swelling, with use of ice to do the same. Bryce had no further questions, and felt ready to be discharged home. No work for 2 weeks. Will be discharged home today with his this afternoon.
--- NOTE | 2019-08-17 20:38 | PCM.DCSUM1 ---
Discharge Summary - Hospital Course Free Text/Narrative:: document #[id number] - Discharge Data Discharge Date: 08/17/19 Discharge Disposition: Home, Self-Care 01 Condition: Stable - Referral to Home Health Primary Care Physician: Nuno Menon MD - Patient Summary/Data Operative Procedure(s) Performed: orif right tibial shaft, right distal fibula Consults: Consultations 08/16/19 18:20 OT Evaluation and Treatment [CONS] Routine PT Evaluation and Treatment [CONS] Routine - Patient Instructions Diet: Usual Diet as Tolerated Activity: Apply Ice, Elevate Extremity, Non Weight Bearing, No Strenuous Activities, Rest and Relax Today Activity, Other: Crutches for ambulation. Wear boot at all times Driving: Do Not Drive Showering/Bathing, Other: Do not get boot or dressings wet when bathing. Wound/Incision Care: Keep Operative Site/Wound Site Clean and Dry, Do NOT Change Dressing Notify Provider of: Fever, Increased Pain, Swelling and Redness, Drainage Other/Special Instructions: Wiggle toes often when elevating leg. - Discharge Plan Prescriptions/Med Rec: Acetaminophen/oxyCODONE [Percocet 325-5 MG] 1 - 2 tab PO Q4H PRN #40 tablet PRN Reason: Pain Home Medications: Home Meds Escitalopram Oxalate [Lexapro] 20 mg PO BEDTIME 08/16/19 [History] Acetaminophen/oxyCODONE [Percocet 325-5 MG] 1 - 2 tab PO Q4H PRN #40 tablet [Rx] Aspirin 325 mg PO DAILY #30 tablet 08/17/19 [Rx] Patient Handouts: Acetaminophen; Oxycodone tablets, Tibial and Fibular Fractures Referrals: Nuno Menon MD [Primary Care Provider] - 08/25/19 10:00 am Evelyn Rush NP [Nurse Practitioner] - 08/31/19 1:40 pm - Discharge Summary/Plan Comment DC Time >30 min.: No - Patient Data Vitals - Most Recent: Last Vital Signs Temp 36.6 C 08/17/19 04:00 Pulse 90 08/17/19 04:00 Resp 16 08/17/19 04:00 BP 109/72 08/17/19 04:00 Pulse Ox 94 L 08/17/19 04:00 Weight - Most Recent: 65.771 kg I&O - Last 24 hours: Intake & Output 08/17/19 08/17/19 08/17/19 06:59 14:59 22:59 Intake Total 1775 700 Output Total 250 300 Balance 1525 400 Lab Results - Last 24 hrs: Laboratory Results - last 24 hr 08/17/19 Range/Units 05:53 Hgb 11.7 L (13.0-17.0) g/dL Hct 35.9 L (38.0-50.0) % Med Orders - Current: Current Medications Discontinued Medications Aspirin (Aspirin) 325 mg PO DAILY [facility] Last Admin: 08/17/19 08:27 Dose: 325 mg Bupivacaine HCl (Marcaine 0.5%) Confirm Administered Dose 30 ml .ROUTE .STK-MED ONE Stop: 08/16/19 15:19 Dexamethasone (Dexamethasone) Confirm Administered Dose 20 mg .ROUTE .STK-MED ONE Stop: 08/16/19 17:00 Docusate Sodium (Colace) 100 mg PO BID [facility] Last Admin: 08/17/19 08:27 Dose: 100 mg Famotidine (Pepcid) 40 mg PO DAILY [facility] Last Admin: 08/17/19 08:27 Dose: 40 mg Fentanyl (Fentanyl) 100 mcg IVPUSH ONETIME ONE Stop: 08/16/19 09:12 Last Admin: 08/16/19 09:22 Dose: 100 mcg Fentanyl (Sublimaze) Confirm Administered Dose 250 mcg .ROUTE .STK-MED ONE Stop: 08/16/19 15:20 Fentanyl (Sublimaze) Confirm Administered Dose 100 mcg .ROUTE .STK-MED ONE Stop: 08/16/19 17:32 Hydromorphone HCl (Dilaudid) 1 - 2 mg IVPUSH ONETIME PRN PRN Reason: Pain Last Admin: 08/16/19 14:54 Dose: 1 mg Hydroxyzine Pamoate (Vistaril) 25 mg PO Q6H PRN PRN Reason: Pain Last Admin: 08/17/19 00:14 Dose: 25 mg Cefazolin Sodium/Dextrose 2 gm (/ Premix) 50 mls @ 100 mls/hr IV ONCALL [facility] Lactated Ringer's (Ringers, Lactated) 1,000 mls @ 100 mls/hr IV ASDIRECTED [facility] Last Admin: 08/16/19 21:22 Dose: 100 mls/hr Acetaminophen (Ofirmev) Confirm Administered Dose 100 mls @ as directed .ROUTE .STK-MED ONE Stop: 08/16/19 16:27 Cefazolin Sodium/Dextrose 2 gm (/ Premix) 50 mls @ 100 mls/hr IV Q8H [facility] Stop: 08/17/19 08:29 Last Admin: 08/17/19 08:35 Dose: 100 mls/hr Lactated Ringer's (Ringers, Lactated) 1,000 mls @ 125 mls/hr IV ASDIRECTED [facility] Last Admin: 08/17/19 04:44 Dose: 125 mls/hr Ketorolac Tromethamine (Toradol) 30 mg IVPUSH ONETIME ONE Stop: 08/16/19 09:12 Last Admin: 08/16/19 09:21 Dose: 30 mg Ketorolac Tromethamine (Toradol) 30 mg IVPUSH Q6H PRN PRN Reason: Pain Stop: 08/17/19 05:00 Lidocaine (Xylocaine-Mpf 2%) Confirm Administered Dose 5 ml .ROUTE .STK-MED ONE Stop: 08/16/19 15:19 Lidocaine HCl (Xylocaine-Mpf 1%) Confirm Administered Dose 5 ml .ROUTE .STK-MED ONE Stop: 08/16/19 18:17 Midazolam HCl (Versed 1 Mg/Ml) Confirm Administered Dose 2 mg .ROUTE .STK-MED ONE Stop: 08/16/19 15:19 Morphine Sulfate (Morphine) 6 mg IVPUSH ONETIME ONE Stop: 08/16/19 10:53 Last Admin: 08/16/19 11:02 Dose: 6 mg Morphine Sulfate (Morphine) 4 mg IVPUSH ONETIME ONE Stop: 08/16/19 16:58 Last Admin: 08/16/19 19:18 Dose: 4 mg Morphine Sulfate (Duramorph Pf) Confirm Administered Dose 10 mg .ROUTE .STK-MED ONE Stop: 08/16/19 16:59 Morphine Sulfate (Morphine) 4 mg IVPUSH Q2H PRN PRN Reason: Pain Last Admin: 08/17/19 11:40 Dose: 4 mg Ondansetron HCl (Zofran) 4 mg IVPUSH ONETIME ONE Stop: 08/16/19 10:53 Last Admin: 08/16/19 11:02 Dose: 4 mg Ondansetron HCl (Zofran) Confirm Administered Dose 4 mg .ROUTE .STK-MED ONE Stop: 08/16/19 17:45 Oxycodone/Acetaminophen (Percocet 325-5 Mg) 1 - 2 tab PO Q4H PRN PRN Reason: Pain Last Admin: 08/17/19 10:17 Dose: 1 tab Propofol (Diprivan 20 Ml) Confirm Administered Dose 200 mg .ROUTE .STK-MED ONE Stop: 08/16/19 15:19 Rocuronium [place] (Zemuron) Confirm Administered Dose 100 mg .ROUTE .STK-MED ONE Stop: 08/16/19 15:19 Sugammadex Sodium (Bridion) Confirm Administered Dose 200 mg .ROUTE .STK-MED ONE Stop: 08/16/19 16:28 Tramadol HCl (Ultram) 50 - 100 mg PO Q4H PRN PRN Reason: Pain
--- NOTE | 2019-08-17 22:33 | OR ---
SURGEON: Kam Coker DATE OF PROCEDURE: 08/17/2019 PREOPERATIVE DIAGNOSES: 1. Right tibial shaft fracture with butterfly fragment, closed. 2. Right distal fibular fracture, closed. POSTOPERATIVE DIAGNOSES: 1. Right tibial shaft fracture with butterfly fragment, closed. 2. Right distal fibular fracture, closed. PROCEDURE: 1. Open reduction and internal fixation, right tibial shaft fracture. 2. Open reduction and internal fixation, right distal fibula fracture. PHYSICIAN OFFICE NURSE: PALOMA Thompson ROLE OF PHYSICIAN OFFICE NURSE: Nurse practitioner, PALOMA Thompson, played an essential role in assisting in this case, helping to position the patient, retract structures as needed, as well as suturing and cutting sutures as indicated. Her presence improved patient's safety and decreased operative time. FLUIDS: Lactated Ringer's solution. ESTIMATED BLOOD LOSS: 150 mL. ANESTHESIA: General endotracheal intubation. COMPLICATIONS: None. SPECIMEN: None. DISCHARGE DISPOSITION: Stable to PACU. HISTORY AND INDICATIONS FOR THE PROCEDURE: The patient was seen in the emergency department. He had undergone a fall from a standing height at work. He was seen in the emergency department and found to have the above-mentioned fractures on radiographs. Risks and goals of the procedure were explained to the patient and informed consent was obtained. DETAILS OF THE PROCEDURE: The patient was seen preoperatively in the preop holding area where the operative site was marked. He was brought to the operative suite by Anesthesia staff where general anesthesia was administered. All extremities found to be well padded. A well-padded tourniquet was placed onto his right thigh. The right lower extremity was then prepped and draped in a sterile manner. A time- out was called identifying the correct patient, the correct procedure, the correct side, and the antibiotics had been given within the appropriate period of time. The right lower extremity was then exsanguinated. Tourniquet was raised to 250 mmHg for 120 minutes and let down during closure. The incision was made over the distal fibula extending approximately 15 cm. The hematoma was cleared out. Blunt elevation was used with an elevator. The superficial peroneal nerve was identified anteriorly and avoided. This was a fracture pattern in the coronal plane with the distal spike posteriorly as well as a lateral spike. There was not a good way to pedroza this in so radiographs were used to estimate length. I applied a plate laterally distally and then wire that in position and then radiographic evaluation using a sterilely draped fluoroscopy unit then wired it to the proximal fragment. We then placed screws in the proximal fragment and then the distal fragment and evaluated it under radiographs achieving the correct length and alignment. We then put in two distal locking screws, then filled the remainder of the screws that we could they were not through the fracture site. We irrigated copiously with Betadine infused irrigation. We then moved on to the medial side. Incision was made approximately 20 cm on the medial side, starting at the distal tip of the medial malleolus and then I used a Morris to go subcutaneously up along the tibial shaft. Most of the butterfly flat fragment was posterior. The difficulty with this was that it was the fracture wanted to go into recurvatum. We bumped the knee eventually to get in good alignment with only slight recurvatum. We then placed the plate up and then I wired it proximally. We then placed proximal and distal screws to get in a good alignment and then continued from distal to proximal and then proximal to distal with screws. I did replace some of the screws as they did not get a good purchase secondary to the position of the plate on the bone at the triangular nature of the tibial shaft changes. Once I got good fixation proximally and distally, I did try to get a lag screw through the butterfly fragment, but I was unable to. We did place a few locking screws distally through the distal medial locking plate. Once we had accomplished our goals, we then copiously irrigated with the Betadine infused irrigation, then we closed subcutaneously with #1 Stratafix for incisions and then closed with skin joni followed by Betadine- soaked Adaptic, fluffs, and an Darvin wrap. We then placed the patient into a Cam Walker boot for dressing changes. The patient was allowed to awaken from general anesthesia and taken to the PACU in stable condition. [id number] / MODL /[id number]
--- NOTE | 2019-08-18 00:33 | DISCH ---
DATE OF DISCHARGE: 08/17/2019 PRIMARY CARE PHYSICIAN: Nuno Menon M.D. ADMITTING DIAGNOSES: 1. Right tibial shaft fracture, closed, butterfly. 2. Right fibular distal fracture, closed. DISCHARGE MEDICAL DIAGNOSES: 1. Status post ORIF, right tibial shaft and right distal fibula. 2. Acute postprocedural pain. HISTORY: This 43-year-old male presented to the emergency room 08/16/2019 after he slipped on ice, fell twisting his right leg. He was found to have a right tibial shaft fracture, closed, butterfly and a right fibular distal fracture, closed. He underwent ORIF right tibial shaft and right distal fibula on August 16, [address] Kam Coker. No known surgical complications. He was admitted to [facility] for postop care, neurovascular examination, and physical therapy. HOSPITAL COURSE: Postoperatively, he had issues with increased pain. This was managed with IV morphine, oral Percocet, and vistaril 25 mg x1 dose. The following morning, pain was better controlled. Vital signs stable, afebrile. Tolerating oral food and fluids without nausea or vomiting. Antibiotic coverage: Two additional doses of Ancef 2 g following surgery. Surgical dressings clean and dry. Right lower extremity, seated in a fracture boot. Neurovascular exam to right distal extremity (toes) intact. DVT prophylaxis: ASA 325 mg, SCD to left lower extremity. PT was initiated postop day 1. He received education on ambulating with crutches, maintaining nonweightbearing to right lower extremity. He was discharged home with his . DISCHARGE MEDICATIONS: 1. Percocet 5/325 mg 1 to 2 tabs q.4 hours p.r.n. 2. Aspirin 325 mg daily. 3. Lexapro 20 mg daily. DISCHARGE ORDERS: Followup appointment scheduled for 2-week [facility]op [facility]. He was directed to be nonweightbearing right lower extremity, ambulating with use of crutches. Diligent use of ice to minimize swelling and elevate extremity. Prescription written for crutches. Patient informed if he has acute concerns or questions, to contact [facility]. NORDREW / MAURICIO /[id number] DIONY
--- NOTE | 2019-12-07 09:24 | OR ---
SURGEON: Kam Coker DATE OF PROCEDURE: 08/16/2019 ADDENDUM: ADDENDUM TO OPERATIVE REPORT: Date of procedure was 08/16/2019. [id number] / MODL /[id number]
== END 2019-08-17 13:30 | disposition home or self-care (01) ==
LOC: MW.ED 09:05 → MW.SDS 09:59 → MW.MS 10:40 → MW.SDS 11:27
PROVIDERS: ATTEND Orthopaedic Surgery
DX: S82.251A Displaced comminuted fracture of shaft of right tibia, initial encounter for closed fracture (principal); S82.831A Other fracture of upper and lower end of right fibula, initial encounter for closed fracture; F41.9 Anxiety disorder, unspecified; F32.9 Major depressive disorder, single episode, unspecified; F17.210 Nicotine dependence, cigarettes, uncomplicated; W00.0XXA Fall on same level due to ice and snow, initial encounter
CPT/HCPCS: 27758; 27792; 36415; 73590; 73610; 73700; 80048; 85014; 85018; 85025; 85610; 86850; 86900; 86901; 96361; 96374; 96375; 97161; 97530; 99285; A9270; J0131; J0690; J1100; J1170; J1885; J2001; J2250; J2270; J2405; J2704; J3010; J3490; J7120; 01392; 99283; C1713; C1776

== ENCOUNTER 2019-08-18 09:23 | Emergency (ER) | payer OTHER, BC | END 2019-08-18 09:47 | disposition left against medical advice (07) | LOC: MW.ED 09:23 | DX: Z53.21 Procedure and treatment not carried out due to patient leaving prior to being seen by health care provider (principal) ==

== ENCOUNTER 2019-10-18 04:05 | Emergency (ER) | payer BC, OTHER ==
[2019-10-18] MEDS ORDERED: Oxymetazoline 0.05% Nasal Spray 15 ML Bottle NAS ONE (04:22)
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
[2019-10-18] MEDS ORDERED: Lidocaine 1% with EPINEPHrine 1:100,000 20 ML MDV INJECT ONE (04:33)
[2019-10-18] MEDS ORDERED: Tranexamic Acid 1,000 MG in Sodium Chloride 0.9% 500 ML IV ONE (04:46)
[2019-10-18] MEDS ORDERED: Acetaminophen/oxyCODONE 325-5 MG Tab PO ONE (05:26)
== END 2019-10-18 05:57 | disposition home or self-care (01) ==
LOC: MW.ED 04:05
DX: R04.0 Epistaxis (principal); F17.210 Nicotine dependence, cigarettes, uncomplicated; Z79.899 Other long term (current) drug therapy; F41.9 Anxiety disorder, unspecified
CPT/HCPCS: 30903; 99283; A9270; J7040; 99282

== ENCOUNTER 2019-10-19 08:14 | Emergency (ER) | payer BC, OTHER | END 2019-10-19 08:37 | disposition home or self-care (01) | LOC: MW.ED 08:14 | DX: Z53.21 Procedure and treatment not carried out due to patient leaving prior to being seen by health care provider (principal) | CPT/HCPCS: 99282 ==